=== PATIENT | male | born 1935 | race Caucasian/White ===

== ENCOUNTER 2024-10-14 10:20 | Inpatient (IN) | payer MEDICARE, OTHER ==
[2024-10-14] VITALS (20 sets, daily range): BP systolic 143–233; BP diastolic 61–108
[~2024-10-14] VITALS: Ht 172.7 cm; Wt 82.8 kg
[2024-10-14] MEDS ORDERED: LOSA50 PO (10:36)
[2024-10-14] MEDS ORDERED: ATOR40TA PO (10:37)
[2024-10-14] MEDS ORDERED: NiCARdipine HCL 25 MG/10 ML (2.5MG/ML) IV ONE (10:45)
[2024-10-14] MEDS ORDERED: NiCARdipine HCL 50 MG in NS 250 ML IV SCH (10:55)
--- NOTE | 2024-10-14 11:19 | NUR ---
PT HYPERTENSIVE, BUT ASYMPTOMATIC UPON ADMIT. BRISKET PULLER DYANI NOTIFIED DR. JACOBSON.
--- NOTE | 2024-10-14 11:43 | NUR ---
THIS RN CALLED PT'S TO NOTIFY OF PT GOING TO ICU 14.
--- NOTE | 2024-10-14 11:46 | NUR ---
THIS RN GAVE REPORT TO DIRECTOR OF KIDS
--- NOTE | 2024-10-14 12:24 | NUR ---
PT ESCOURTED TO ROOM ICU 14 BY THIS RN AT 11:55.
--- NOTE | 2024-10-14 13:48 | NUR ---
ICU Admission Recieved patient from Med Surg. AAOx4, NSR, RA, ambulatory with no assist. Patient hypertensive with initial SBP 248. Cardene GTT orders in and started. Patient states he is not hypertensive medications at home. 81.6kg.
--- NOTE | 2024-10-14 20:02 | NUR ---
ASSUMPTION OF CARE CARE OF PT ASSUMED FOLLOWING BEDSIDE SHIFT REPORT FROM DAY RN. PT LYING IN BED IN NO APPARENT DISTRESS, ALERT AND ORIENTED TO ALL. MAEW. NEUROVASCULARLY INTACT. CN'S GROSSLY INTACT. [place]. SPEECH SOMEWHAT MUMBLY W/O DENTURES IN PLACE. SINUS RHYTHM IN THE 70'S. SBP > 180 ON 2.5 MG/HR OF NICARDIPINE. MINIMAL AIR MOVEMENT THROUGH LUNGS BUT CLEAR AND DIMINISED IN THE BASES. NO CHEST PAIN/PRESSURE OR SOB. BOWEL SOUNDS INTACT THROUGHOUT AND PT DENIES AB PAIN, N,V. WILL REVIEW AND CONTINUE PLAN OF CARE.
[2024-10-14] MEDS ORDERED: PANT40 PO (21:03)
[2024-10-15] VITALS (47 sets, daily range): BP systolic 140–194; BP diastolic 63–145
[2024-10-15 03:37] LABS: BASOPHILS ABSOLUTE AUTO 0.03 K/mm3 (0.00-0.23); BASOPHILS PERCENT AUTO 1 % (0-2); EOSINOPHILS ABSOLUTE AUTO 0.22 K/mm3 (0.00-0.68); EOSINOPHILS PERCENT AUTO 4 % (0-6); Hematocrit 44.3 % (37.0-53.0); Hemoglobin 14.3 g/dL (13.5-17.5); IMMATURE GRAN ABSOLUTE AUTO 0.01 K/mm3 (0.00-0.10); IMMATURE GRAN PERCENT AUTO 0 % (0-1); LYMPHOCYTES ABSOLUTE AUTO 1.60 K/mm3 (0.84-5.20); LYMPHOCYTES PERCENT AUTO 29 % (21-46); MONOCYTES ABSOLUTE AUTO 0.51 K/mm3 (0.16-1.47); MONOCYTES PERCENT AUTO 9 % (4-13); Mean Corpuscular HGB Conc 32.3 g/dL (31.5-36.5); Mean Corpuscular Volume 88 fL (80-100); NEUTROPHILS ABSOLUTE AUTO 3.20 K/mm3 (1.96-9.15); NEUTROPHILS PERCENT AUTO 58 % (41-73); NRBC ABSOLUTE 0.00 K/mm3 (0.00-0.02); NRBC Auto 0.0 /100 WBC (0.0-0.2); Platelet Count 185 K/mm3 (150-400); RDW Coefficient Variation 13.2 % (11.7-14.2); RDW Standard Deviation 42.9 fL (35.1-46.3)
[2024-10-15 04:01] LABS: Alanine Aminotransfer (ALT/SGP 342.0 U/L (12-78); Albumin, Blood 3.8 g/dL (3.4-5.0); Albumin/Globulin Ratio 0.8 (0.8-1.8); Anion Gap 7.0 mmol/L (3-11); Aspartate Aminotrans (AST/SGOT 218.0 U/L (12-37); Bilirubin, Total 0.8 mg/dL (0.1-1.0); Blood Urea Nitrogen 20.0 mg/dL (8-24); CO2, Blood 28.0 mmol/L (21-32); Calcium, Blood 10.1 mg/dL (8.5-10.1); Chloride, Blood 106.0 mmol/L (98-108); Creatinine, Blood 0.93 mg/dL (0.60-1.20); Globulin, Blood 4.8 g/dL (2.2-4.0); Glucose, Blood 165.0 mg/dL (70-99); Magnesium, Blood 2.1 mg/dL (1.6-2.4); Potassium, Blood 3.7 mmol/L (3.5-5.5); Sodium, Blood 137.0 mmol/L (136-145); Total Protein, Blood 8.6 g/dL (6.4-8.2)
--- NOTE | 2024-10-15 06:09 | NUR ---
SHIFT SUMMARY PT SITTING UP IN BED IN NO APPARENT DISTRESS. ALERT AND ORIENTED TO ALL. PT STEADY ON FEET. SBA TO TOILET OR STANDING BY BED TO USE URINAL. PT DID EXPERIENCE SEVERAL EPISODES OF NUMBNESS IN LEFT FOOT AFTER LYING IN BED FOR LONG PERIODS- RELIEVED BE STANDING. PT STAYED IN SINUS RHYTHM IN THE 70'S WITH MILD TACHYCARDIA AT TIMES WHEN UP TO TOILET. NO CHEST PAIN/PRESSURE HOWEVER. NICARDIPINE INFUSING AT 2.5 MG/HR, KEEPING SBP BELOW TARGET OF 180. INFUSION WAS DECREASED TO 1 MG/HR FOR PART OF SHIFT. PT DENIES SOB AND SATURATED IN THE MID 90'S ON RA; NO EXERTIONAL DYSPNEA EITHER. CHEST EXPANSION SYMMETRIC. LUNGS CLEAR AND DIMINISHED IN BASES. NO BM. BOWEL SOUNDS ACTIVE THROUGHOUT. NO AB PAIN, N/V. ALT, AST AND ALK PHOS WERE SUBSTANTIALLY ELEVATED WITH MORNING LABLS. PT HAD MILD ELEVATIONS IN THESE VALUES DURING RECENT PCP VISITS WHICH ENGENDERED AN AB U/S (POSSIBLE SIGNS OF CIRRHOSIS) AND, ACCORDING TO THE PT, A GI REFERRAL. URINE OUTPUT 1,000ML. BEDSIDE SHIFT REPORT GIVEN TO RADHA DAVIDSON RN. RN.
--- NOTE | 2024-10-15 07:53 | NUR ---
ASSUMPTION OF CARE ASSUMED CARE OF PATIENT AT APPROXIMATELY 0700. PT RESTING IN BED, ALERT AND ORIENTED X4. PT ANSWERS QUESTIONS APPROPRIATLEY, FOLLOWS DIRECTION WHEN PROMPTED AND IS ABLE TO MAKE HIS NEEDS KNOWN. PT MOVES EXTREMITIES EQUALLY BILATERALLY, AMBULATES IN THE ROOM WITH MINIMAL ASSISTANCE WITH CORD MANAGEMENT. PT PROVIDED TOOTH BRUSH AND COMB, INDEPENDENT WITH SELF CARE. PT DENIES PAIN AT TIME OF ASSESSMENT. HR 70-80'S SINUS, SBP 160-190'S, ASYMPTOMATIC. PT DENIES CP/PRESSURE. NICARDIPINE INFUSING AT 2.5MG/HR. PT ON RA, OXYGEN SATURATION >95%. PT USES URINAL TO VOID. POWERGLIDE IN PLACE TO TREVIN. PT UP IN RECLINER AT THIS TIME, DENIES NEEDS. CALL LIGHT WITHIN REACH, CARE CONTINUES.
[2024-10-15] MEDS ORDERED: Enoxaparin 40 MG/0.4 ML SYR SC SCH (09:00)
[2024-10-15] MEDS ORDERED: LOSARTAN POTAS100 M1 PO (13:17)
--- NOTE | 2024-10-15 16:26 | NUR ---
TRANSFER TO MEDICAL FLOOR REPORT CALLED TO MEDICAL FLOOR NURSE. PT TRASNFERED TO MEDICAL FLOOR VIA WHEELCHAIR. PT REMAINED ALERT AND ORIENTED, VITAL SIGNS STABLE. PT TRANSFERED TO MEDICAL FLOOR BED VIA SBA.
--- NOTE | 2024-10-15 18:14 | NUR ---
TRANSFER FROM ICU14, ALERT AND ORIENTED X4, STAND BY TO BATHROOM, CLEARLY MAKES NEEDS KNOWN, CALL LIGHT WITH IN [place], MRI POSSIBLEY TOMORROW AND DISCAHRGE HOME TOMORROW
[2024-10-16 00:53] VITALS: BP 160/56
[2024-10-16 04:15] VITALS: BP 155/66
--- NOTE | 2024-10-16 04:59 | NUR ---
SHIFT SUMMARY PT A&Ox4 AND PLEASANT. NO C/O PAIN. PT ABLE TO SLEEP MOST OF THE NIGHT. PT SR IN THE 60's-70's PER TELE. IND IN ROOM. BED IN LOWEST POSITION AND CALL LIGHT IN REACH.
[2024-10-16 07:14] VITALS: BP 170/79
[2024-10-16 10:47] VITALS: BP 149/113
[2024-10-16 12:19] VITALS: BP 164/79
[2024-10-16] MEDS ORDERED: AMLO5 PO (13:00)
[2024-10-16] MEDS ORDERED: HYDCHL25 PO (13:00)
[2024-10-16 15:26] VITALS: BP 150/65
--- NOTE | 2024-10-16 15:51 | NUR ---
DISCHARGE NOTE MR RIVERA WAS DISCHARGED HOME WITH HIS SON AT 1530HRS. MR RIVERA AND HIS SON VERBALISED UNDERSTANDING OF WRITTEN AND VERBAL DISCHARGE INSTRUCTIONS. THEY HAD NO NEW QUESTIONS OR CONCERNS PRIOR TO DISCHARGE. POWERGLIDE REMOVED AND TELEMETRY REMOVED PRIOR TO DISCHARGE. MR RIVERA DENIED HAVING ANY PAIN, WAS UP INDEPENDENTLY WITH STEADY GAIT TO THE BATHROOM.
== END 2024-10-16 15:40 | disposition home or self-care (01) | DRG 305 ==
LOC: MEDS 10:20 → ICUE 10:20 → MEDS 10-15 16:20
PROVIDERS: ADMIT Internal Medicine
DX: I16.1 Hypertensive emergency (principal); I10 Essential (primary) hypertension; K70.30 Alcoholic cirrhosis of liver without ascites; M19.90 Unspecified osteoarthritis, unspecified site; E11.51 Type 2 diabetes mellitus with diabetic peripheral angiopathy without gangrene; E78.5 Hyperlipidemia, unspecified; Z86.73 Personal history of transient ischemic attack (TIA), and cerebral infarction without residual deficits; Z87.891 Personal history of nicotine dependence
CPT/HCPCS: 74183; 80053; 83735; 85025; A9270; A9581; C1751; J1650; J7050